=== PATIENT | male | born 1985 | race Caucasian/White ===

== ENCOUNTER 2018-06-05 15:43 | Emergency (ER) | payer MEDICAID ==
[~2018-06-05] VITALS: Ht 170.2 cm; Wt 97.1 kg
[2018-06-05 15:51] VITALS: Ht 170.2 cm; Wt 97.1 kg
[2018-06-05 17:54] VITALS: BP 139/101
== END 2018-06-05 18:58 | disposition home or self-care (01) ==
LOC: ED 15:43
DX: R10.13 Epigastric pain (principal); F17.210 Nicotine dependence, cigarettes, uncomplicated; G47.00 Insomnia, unspecified; F43.0 Acute stress reaction